=== PATIENT | male | born 1990 | race Two or more races ===

== ENCOUNTER 2024-12-24 08:28 | Emergency (ER) | payer OTHER, SELFPAY ==
[2024-12-24 08:39] VITALS: BP 137/68; PULSE 118; RESP 18; TEMP 37.9; O2SAT 98
--- OUTSIDE RECORDS SUMMARY | 2024-12-24 08:39 | XMS_ITS | Referral Summary ---
Author Organization [facility] Address [address] [place] [address] Phone Care Team Providers Care Wood Boatbuilder Name Role Phone Etelvina Hernandez Daniel Patrick MD Primary Care Provider [phone] Encounters Date Type Department Care Team Description 12/14/2024 Telephone [facility] [address] [place] [address] Juan Christian MD Labs Only 09/27/2024 8:45 AM WASHER REPAIRMAN Lab [facility] [address] [place] [address] Hypogonadism in male from Last 3 Months Allergies No known active allergies Medications No known medications Active Problems Problem Noted Date Diagnosed Date Hypogonadism in male 09/16/2024 Assessment & Plan (09/16/2024 9:52 AM WASHER REPAIRMAN): Patient has been using testosterone; most recent levels were elevated; reports energy levels are improved Will discontinue testosterone; recheck in approximately 3-4 weeks with confirmation testing afterwards Determine appropriate dose of testosterone Class 1 obesity due to exces s calories without serious comorbidity with body mass index (BMI) of 33.0 to 33.9 in adult 09/11/2022 Assessment & Plan (09/16/2024 9:52 AM WASHER REPAIRMAN): Stable, improving; patient has been losing weight, few dietary changes but more physically active, exercising most days of the week Encouraged continue physical activity Assessment & Plan (09/11/2023 3:29 PM WASHER REPAIRMAN): Generally healthy diet of chicken rice or beef and potatoes; goes to gym daily for 40 minutes during lunch, mostly resistance with minimal aerobic activity Encouraged increased aerobic activity for 30 minutes moderate intensity exercise 5 days per week Assessment & Plan (09/11/2022 4:16 PM WASHER REPAIRMAN): Patient reports working on weight loss, calorie restriction and regular exercise has had limited success Will check thyroid levels as possible cause Discussed further behavioral changes, including decreasing weightlifting and focusing on aerobic exercises, as well as targeting approximately 500 calorie deficit daily If no improvement, would consider further evaluation for other potential causes of undesired weight maintenance Immunizations Immunization Administration Dates Next Due DTP 11/10/1996, 4,06/21/1992,04/26,03/01/1992 Hep A, Ped Unspecified 11/09/2001 Hep B, Adolescent or Pediatric 10/05/1993,1991,03/28/1992 HiB 05/05/1994,05/24/1992,03/28/1992 Influenza, Quadrivalent, Spl it, Intramuscular 06/16/2018 Influenza, Quadrivalent, Spl it, Preservative Free, Intramuscular 09/11/2023,09/11/2022 Influenza, Trivalent, IM (MDV) 06/02/2020 Influenza, Trivalent, Preser vative Free, Intramuscular 09/16/2024 Influenza, Unspecified 05/26/2023(Deferred: Crissy ent Refused) MMR 11/10/1996,10/05/1993 Moderna SARS-CoV-2 Monovalen t Vaccination (12+ YRS) 01/04/2021,12/07/2020 OPV 11/13/1996, 4,04/26/1992,03/01 Tdap 01/26/2022,12/16/2005 Varicella 11/10/1996 Social History Tobacco Use Types Packs/Day Years Used Date Smoking Tobacco: Never Cigarettes Smokeless Tobacco: Never Tobacco Cessation:Counseling Given: Not Answered Humiliation, Afraid, Rape, and Kick questionnair e Answer Date Recorded Within the last year, have y ou been afraid of your partner or ex-partner? No 05/26/2023 Within the last year, have y ou been humiliated or emotionally abused in other ways by your partner or ex-partner? No Within the last year, have y ou been kicked, hit, slapped, or otherwise physically hurt by your partner or ex-partner? No 05/26/2023 Within the last year, have y ou been raped or forced to have any kind of sexual activity by your partner or ex-partner? No 05/26/2023 Social Connection and Isolation Panel [NHANES] A nswer Date Recorded In a typical week, how many times do you talk on the phone with family, friends, or neighbors? Once a week 05/26/2023 How often do you get together with friends or re latives? Once a week 05/26/2023 How often do you attend holiness or congregational serv ices? Never 05/26/2023 Do you belong to any clubs o r organizations such as holiness groups, unions, fraternal or athletic groups, or school groups? No 05/26/2023 How often do you attend meet ings of the clubs or organizations you belong to? Never 05/26/2023 Are you , , di vorced, , never , or living with a partner? 05/26/2023 AUDIT-C Answer Date Recorded Q1: How often do you have a drink containing alc ohol? Monthly or less 09/16/2024 Q2: How many drinks containi ng alcohol do you have on a typical day when you are drinking? 1 or 2 09/16/2024 Q3: How often do you have si x or more drinks on one occasion? Never 09/16/2024 Overall Financial Resource Strain (CARDIA) Answe r Date Recorded How hard is it for you to pa y for the very basics like food, housing, medical care, and heating? Not hard at all 05/26/2023 PHQ-2 Answer Date Recorded PHQ-2 Total Score (If total score is 3 or more points, staff should administer the PHQ-9) 0 09/16/2024 [facility] - Occupational Stress Questionnaire Answer Date Recorded Do you feel stress - tense, restless, nervous, or anxious, or unable to sleep at night because your mind is troubled all the time - these days? Rather much 05/26/2023 Exercise Vital Sign Answer Date Recorde d On average, how many days pe r week do you engage in moderate to strenuous exercise (like a brisk walk)? 5 days 05/26/2023 On average, how many minutes do you engage in exercise at this level? 30 min 05/26/2023 Hunger Vital Sign Answer Date Recorded Within the past 12 months, y ou worried that your food would run out before you got the money to buy more. Never true 05/26/20 23 Within the past 12 months, t he food you bought just didn't last and you didn't have money to get more. Never true 05/26/2023 PRAPARE - Transportation Answer Date Re corded In the past 12 months, has l ack of transportation kept you from medical appointments or from getting medications? No 05/03 In the past 12 months, has l ack of transportation kept you from meetings, work, or from getting things needed for daily living? No 05/26/2023 Housing Stability Vital Sign Answer Judson e Recorded In the last 12 months, was t here a time when you were not able to pay the mortgage or rent on time? No 05/26/2023 In the last 12 months, how many places have you lived? 1 05/26/2023 In the last 12 months, was t here a time when you did not have a steady place to sleep or slept in a skilled nursing (including now)? No 05/26/2023 Sex and Gender Information Value Date Recorded Sex Assigned at Not on file Legal Sex Male 4:24 PM WASHER REPAIRMAN Gender Identity Male 09/11/2022 9:55 AM WASHER REPAIRMAN Sexual Orientation Straight 09/11/2022 9: 55 AM WASHER REPAIRMAN Last Filed Vital Signs Vital Sign Reading Time Taken Comments Blood Pressure 112/70 09/16/2024 7:51 AM WASHER REPAIRMAN Pulse 80 09/16/2024 7:51 AM WASHER REPAIRMAN Temperature 36.6 C (97.8 F) 09/16/2024 7:51 AM WASHER REPAIRMAN Respiratory Rate 18 09/16/2024 7:51 AM WASHER REPAIRMAN Oxygen Saturation 96% 09/16/2024 7:51 AM WASHER REPAIRMAN Inhaled Oxygen Concentration - - Weight 94.8 kg (209 lb) 09/16/2024 7:51 AM WASHER REPAIRMAN Height 167.6 cm (5' 6 ) 09/16/2024 7:51 AM WASHER REPAIRMAN Body Mass Index 33.73 09/16/2024 7:51 AM WASHER REPAIRMAN Plan of Treatment Not on file Procedures Procedure Name Priority Date/Time Associated Diagnosis Comments EGFR Routine 09/27/2024 8:43 AM WASHER REPAIRMAN Hypogonadism in male TOTAL TESTOSTERONE Routine 09/27/2024 8: 43 AM WASHER REPAIRMAN Hypogonadism in male LUTEINIZING HORMONE (LH) Routine 09/27/2024 8:43 AM WASHER REPAIRMAN Hypogonadism in male FOLLICLE STIMULATING HORMONE Routine 09/27/2024 8:43 AM WASHER REPAIRMAN Hypogonadism in male COMPREHENSIVE METABOLIC PANEL Routine 09/27/2024 8:43 AM WASHER REPAIRMAN Hypogonadism in male from Last 3 Months Results * eGFR (09/27/2024 8:43 AM WASHER REPAIRMAN) eGFR 68 >=60 mL/min/1. 73 m2 Comment: Interpretive Data Reference Interval Normal >/= 90 mL/min/1.73m2 Mildly decreased* 60 - 89 mL/min/1.73m2 Mildly to moderately decreased 45 - 59 mL/min/1.73m2 Moderately to severely decreased 30 - 44 mL/min/1.73m2 Severely decreased 15 - 29 mL/min/1.73m2 Kidney Failure < 15 mL/min/1.73m2 *Relative to young adult level Estimated glomerular filtration rate is determined by the 2020 CKD-EPI equation recommended by the National Kidney Foundation (A Unifying Approach to GFR Estimation: Recommendations of the NKF-ASK Task Force on Reassessing the Inclusion of Race in Diagnosing Kidney Disease, JASN 202). The CKD-EPI equation should not be used for patients with unstable renal function and has not been validated in children and those over 70. Current interpretive data was last reviewed 2021. Testing performed by: [facility], [address] [place] [address], [place]., [address] Blood 09/27/2024 8:43 AM WASHER REPAIRMAN 09/27/2024 11:50 AM WASHER REPAIRMAN Juan Christian MD LAB BLOOD ORDERABLES Valerie l Result [facility] ([place]) [address] [facility] [place] [address] * Total testosterone (09/27/2024 8:43 AM WASHER REPAIRMAN) Testosterone 273 249 - 836 ng/dL Comment:Testing performed by : [facility], [address] [place] [address], [address] Blood 09/27/2024 8:43 AM WASHER REPAIRMAN 09/27/2024 11:44 AM WASHER REPAIRMAN Juan Christian MD LAB BLOOD ORDERABLES Valerie l Result Performing Organization Address [facility]/ZIP Co de Phone Number [facility] ([place]) [address] [place] [address] [place] [address] * (ABNORMAL) LH (09/27/2024 8:43 AM WASHER REPAIRMAN) LH <0.3(L) 1.7 - 8.6 IUnits/L Comment: Interpretive Data Males: Adults: 1.7 - 8.6 IUnits/L Females: Follicular: 2.4 - 12.6 IUnits/L Ovulation: 14.0 - 95.6 IUnits/L Luteal: 1.0 - 11.4 IUnits/L Postmenopausal: 7.7 - 58.5 IUnits/L Current interpretive data was last revised on 2019. Testing performed by: [facility], [address] [place] [address], [place]., [address] Blood 09/27/2024 8:43 AM WASHER REPAIRMAN 09/27/2024 4:57 PM WASHER REPAIRMAN Juan Christian MD LAB BLOOD ORDERABLES Valerie l Result [facility] ([place]) [address] Department [place] [address] * (ABNORMAL) Follicle stimulating hormone (09/27/2024 8:43 AM WASHER REPAIRMAN) FSH <0.3(L) 1.5 - 12.4 IUnits/L Comment: Interpretive Data Male: Adults: 1.5 - 12.4 IUnits/L Female: Follicular: 3.5 - 12.5 IUnits/L Ovulation: 4.7 - 21.5 IUnits/L Luteal: 1.7 - 7.7 IUnits/L Postmenopausal: 25.8 - 134.8 IUnits/L Current interpretive data was last revised 2015. Testing performed by: [facility], [address] [place] [address], [address] Blood 09/27/2024 8:43 AM WASHER REPAIRMAN 09/27/2024 4:57 PM WASHER REPAIRMAN Juan Christian MD LAB BLOOD ORDERABLES Valerie l Result [facility] ([place]) 1 [facility] Department [place] [address] * (ABNORMAL) Comprehensive metabolic panel (09/27/2024 8:43 AM WASHER REPAIRMAN) Pathologist [facility] Sodium 141 135 - 145 mmol/L Comment:Testing performed by : [facility], [address] [place] [address]., [address] Potassium, pl 4.0 3.3 - 4.9 mmol/L [facility] ([place]) Comment:Testing performed by : [facility], [address] [place] [address]., [address] Chloride 103 97 - 110 mmol/L [facility] ([place]) Comment:Testing performed by : [address], [address] CO2 28 22 - 32 mmol/L [facility] ([place]) Comment:Testing performed by : [address], [address] Anion gap 10 2 - 15 mmol/L [facility] ([place]) Comment:Testing performed by : [address] [address] BUN 14 6 - 25 mg/dL [facility] ([place]) Comment:Testing performed by : [address] [address] Creatinine 1.41(H) 0.80 - 1.30 mg/dL [facility] ([place]) Comment:Testing performed by : [address] [address] Glucose 93 70 - 199 mg/dL [facility] ([place]) Comment: Interpretive Data Fasting glucose >/= 126 mg/dl is diagnostic for diabetes. Fasting is defined as no caloric intake for at least 8 hours. Fasting glucose between 100 mg/dl to 125 mg/dl is diagnostic of prediabetes. In a patient with classic symptoms of hyperglycemia or hyperglycemic crisis, a random glucose >/= 200 mg/dl is diagnostic for diabetes. In the absence of unequivocal hyperglycemia, results should be confirmed by repeat testing. The classification and Diagnosis of Diabetes Diabetes Care 2021; 46: S19-S40. Current interpretive data was last revised 2022. Testing performed by: [address] [address] Calcium 9.8 8.5 - 10.3 mg/dL [facility] ([place]) Comment:Testing performed by : [address] [address] Bilirubin, total 0.6 0.1 - 1.2 mg/dL [facility] ([place]) Comment:Testing performed by : [address] [address] Protein, pl 7.7 6.5 - 8.5 g/dL [facility] ([place]) Comment:Testing performed by : [address] [address] Albumin 4.7 3.5 - 5.0 g/dL [facility] ([place]) Comment:Testing performed by : [address], [address] Alk phos 69 40 - 130 Units/L [facility] ([place]) Comment:Testing performed by : [address], [address] ALT 42 7 - 55 Units/L [facility] ([place]) Comment:Testing performed by : [facility], [id number] [place] [address]., [address] AST 42 10 - 50 Units/L [facility] ([place]) Comment:Testing performed by : [facility], [address] [place] [address]., [address] Blood 09/27/2024 8:43 AM WASHER REPAIRMAN 09/27/2024 11:44 AM WASHER REPAIRMAN us Juan Christian MD LAB BLOOD ORDERABLES Valerie walker Result [facility] ([place]) 1 [facility] Department [place] [address] from Last 3 Months [facility] [employer]LE[employer] Care Teams Wood Boatbuilder Relationship Specialty Start Date End Date Juan Christian MD [address] [place] [address] PCP - General Family Medicine 09/11/22 Etelvina Hernandez 04/18/22
--- OUTSIDE RECORDS SUMMARY | 2024-12-24 08:39 | XMS_ITS | Clinical Summary ---
Author Organization [facility] [employer] [place] Address [address] [place] [address] Care Team Providers Care Ophthalmic Asst Name Role Phone Juan Christian MD Primary Care Provider [phone] Allergies No known active allergies Medications amoxicillin (AMOXIL) 875 mg tabletIndication s:Acute right otitis media Take 1 Tablet (875 mg) by mouth every 12 hours. 20 Tablet 09/13/2022 Active Active Problems No known active problems Encounters Date Type Department Care Team Description 11/30/2024 External Device Data [facility] ABSTRACTION Provider, Abstract 10/26/2024 External Device Data [facility] Provider, Abstract 10/20/2024 External Device Data [facility] Provider, Abstract from Last 3 Months Immunizations Immunization Administration Dates Next Due INFLUENZA VACCINE QUADRIVALENT 6 MOS UP IM 06/16 INFLUENZA VACCINE QUADRIVALENT 6 MOS UP PF IM Influenza Seasonal Unspecified Formulation IM Family History Medical History Relation Name Comments Lung Cancer Father Randy Daniel Has passed - Diagnosed in late 50s Relation Name Status Comments Father Randy Daniel Social History Tobacco Use Types Packs/Day Years Used Date Smoking Tobacco: Never Smokeless Tobacco: Never Comments:Never touched tobac co Alcohol Use Standard Drinks/Week Comments Yes 0 (1 standard drink = 0.6 oz pur e alcohol) Maybe a drink or two a week Sex and Gender Information Value Date Recorded Sex Assigned at Not on file Legal Sex Male 10:18 AM CDT Gender Identity Not on file Sexual Orientation Not on file Last Filed Vital Signs Vital Sign Reading Time Taken Comments Blood Pressure 118/70 02/20/2024 8:58 AM CDT Pulse 91 09/13/2022 7:58 AM SOLID WASTE TECHNICIAN Temperature 36 C (96.8 F) 09/13/2022 7:58 AM SOLID WASTE TECHNICIAN Respiratory Rate 18 09/13/2022 7:58 AM SOLID WASTE TECHNICIAN Oxygen Saturation 99% 09/13/2022 7:58 AM SOLID WASTE TECHNICIAN Inhaled Oxygen Concentration - - Weight 96.6 kg (213 lb) 02/20/2024 8:58 AM CDT Height 170.2 cm (5' 7 ) 02/20/2024 8:58 AM CDT Body Mass Index 33.36 02/20/2024 8:58 AM CDT Plan of Treatment Health Maintenance Due Date Last Done Comments INFLUENZA VACCINE (#1) 2024 , 09/11/2022, 06/02/2020, Additional history exists COVID-19 Vaccine ( season) 2024 01/04/2021, 12/07/2020 DTAP/TDAP/TD VACCINES (8 - Td or Tdap) 01/27/2032 01/26/2022, 12/16/2005, 11/10/1996, Additional history exists HEPATITIS B VACCINES Completed 10/05/1993, 04/26/1992, 03/28/1992 HPV VACCINES Aged Out No longer eligi ble based on patient's age to complete this topic Insurance [employer] OPEN ACCESS * Guarantor: [employer] Account Type Relation to Patient Date of Phone Billing Address Corporate Employer ATTN: LETY KAMARA [address] [address] Care Teams Ophthalmic Asst Relationship Specialty Start Date End Date Juan Christian MD [address] [place] [address] PCP - General Family Practice 09/13/22
--- OUTSIDE RECORDS SUMMARY | 2024-12-24 08:39 | XMS_ITS | Clinical Summary ---
Author Organization [facility] Address [address] [place] [address] Care Team Providers Care Nutrition Teacher Name Role Phone Unavailable Primary Care Provider Unavailabl e Source Comments [facility],non-owned Affiliates and Associated Physician Practices is amultiple site organization consisting of ambulatory clinics and hospital sitesin [place], [place], [place] and [place]. This disclosure is being madepursuant to the Care Everywhere program and may not contain all information available regarding this patient. Last updated 18.[facility] Allergies No known active allergies Medications * Be aware that medications may not be up to date on this document. Alwaysverify current medications with the patient. No known medications Social History Tobacco Use Types Packs/Day Years Used Date Smoking Tobacco: Never Assessed Sex and Gender Information Value Date Recorded Sex Assigned at Not on file Legal Sex Male 1:27 PM CDT Gender Identity Not on file Sexual Orientation Not on file Last Filed Vital Signs Vital Sign Reading Time Taken Comments Blood Pressure 120/72 12/17/2016 2:16 PM CDT Pulse 85 12/17/2016 2:16 PM CDT Temperature 36.9 C (98.5 F) 12/17/2016 2:16 PM CDT Respiratory Rate - - Oxygen Saturation - - Inhaled Oxygen Concentration - - Weight 86.2 kg (190 lb) 12/17/2016 2:16 PM CDT Height 170.2 cm (5' 7 ) 12/17/2016 2:16 PM CDT Body Mass Index 29.76 12/17/2016 2:16 PM CDT Plan of Treatment Health Maintenance Due Date Last Done Comments HIV SCREENING 12/29/2006 HEPATITIS C SCREENING 12/25/2009 DTAP/TDAP/TD VACCINES (1 - Tdap) 12/29/2010 HEPATITIS B VACCINE (1 of 3 - 19+ 3-dose series) 12/29/2010 COVID-19 VACCINE (2023-2 5 season) 2024 DEPRESSION SCREENING 09/01/2024 INFLUENZA VACCINE (Season Ended) 2025 ZOSTER VACCINE (1 of 2) 12/29/2041 HIB VACCINE Aged Out No longer eligi ble based on patient's age to complete this topic HPV VACCINE Aged Out No longer eligi ble based on patient's age to complete this topic MENINGOCOCCAL (Group B) VACC INE SHARED DECISION-MAKING Aged Out No longer eligibl e based on patient's age to complete this topic MENINGOCOCCAL GROUPS A/C/Y/W VACCINE Aged Out No longer eligible b ased on patient's age to complete this topic PNEUMOCOCCAL VACCINE Aged Out No long er eligible based on patient's age to complete this topic Insurance
--- OUTSIDE RECORDS SUMMARY | 2024-12-24 08:39 | XMS_ITS | Clinical Summary ---
Author Organization [facility] Address [address] [address] Phone Care Team Providers Care Fretted Instrument Inspector Name Role Phone Etelvina Hernandez Daniel Patrick MD Primary Care Provider [phone] Allergies No known active allergies Medications No known medications Active Problems Problem Noted Date Diagnosed Date Hypogonadism in male 09/16/2024 Assessment & Plan (09/16/2024 9:52 AM MOBILE UI DESIGNER): Patient has been using testosterone; most recent levels were elevated; reports energy levels are improved Will discontinue testosterone; recheck in approximately 3-4 weeks with confirmation testing afterwards Determine appropriate dose of testosterone Class 1 obesity due to exces s calories without serious comorbidity with body mass index (BMI) of 33.0 to 33.9 in adult 09/11/2022 Assessment & Plan (09/16/2024 9:52 AM MOBILE UI DESIGNER): Stable, improving; patient has been losing weight, few dietary changes but more physically active, exercising most days of the week Encouraged continue physical activity Assessment & Plan (09/11/2023 3:29 PM MOBILE UI DESIGNER): Generally healthy diet of chicken rice or beef and potatoes; goes to gym daily for 40 minutes during lunch, mostly resistance with minimal aerobic activity Encouraged increased aerobic activity for 30 minutes moderate intensity exercise 5 days per week Assessment & Plan (09/11/2022 4:16 PM MOBILE UI DESIGNER): Patient reports working on weight loss, calorie restriction and regular exercise has had limited success Will check thyroid levels as possible cause Discussed further behavioral changes, including decreasing weightlifting and focusing on aerobic exercises, as well as targeting approximately 500 calorie deficit daily If no improvement, would consider further evaluation for other potential causes of undesired weight maintenance Encounters Date Type Department Care Team Description 12/14/2024 Telephone [facility] [address] [place] [address] Juan Christian MD Labs Only 09/27/2024 8:45 AM MOBILE UI DESIGNER Lab [facility] [address] [place] [address] Hypogonadism in male from Last 3 Months Immunizations Immunization Administration Dates Next Due DTP [...] OPV 11/13/1996, 4,04/26/1992,03/01 Tdap 01/26/2022,12/16/2005 Varicella 11/10/1996 Family History Medical History Relation Name Comments Asthma Father Randy Carver Asthma; Cancer Father Randy Carver Lung cancer Father Randy Carver Cancer -lung ; Hypertension Mother Vee Carver Hypertension ; Other Mother Vee Carver Alive and we ll; Relation Name Status Comments Father Randy Carver Mother Vee Carver Alive Social History Tobacco Use Types Packs/Day Years [...] week 05/26/2023 How often do you attend nondenominational or spiritism serv ices? Never 05/26/2023 Do you belong to any clubs o r organizations such as nondenominational groups, unions, fraternal or athletic groups, or [...] staff should administer the PHQ-9) 0 09/16/2024 [facility] - Occupational Stress Questionnaire Answer Date Recorded [...] place to sleep or slept in a assisted (including now)? No 05/26/2023 Sex and Gender Information Value Date Recorded Sex Assigned at Not on file Legal Sex Male 4:24 PM MOBILE UI DESIGNER Gender Identity Male 09/11/2022 9:55 AM MOBILE UI DESIGNER Sexual Orientation Straight 09/11/2022 9: 55 AM MOBILE UI DESIGNER Obstetrics History Last Filed Vital Signs Vital Sign Reading Time Taken Comments Blood Pressure 112/70 09/16/2024 7:51 AM MOBILE UI DESIGNER Pulse 80 09/16/2024 7:51 AM MOBILE UI DESIGNER Temperature 36.6 C (97.8 F) 09/16/2024 7:51 AM MOBILE UI DESIGNER Respiratory Rate 18 09/16/2024 7:51 AM MOBILE UI DESIGNER Oxygen Saturation 96% 09/16/2024 7:51 AM MOBILE UI DESIGNER Inhaled Oxygen Concentration - - Weight 94.8 kg (209 lb) 09/16/2024 7:51 AM MOBILE UI DESIGNER Height 167.6 cm (5' 6 ) 09/16/2024 7:51 AM MOBILE UI DESIGNER Body Mass Index 33.73 09/16/2024 7:51 AM MOBILE UI DESIGNER Plan of Treatment Health Maintenance Due Date Last Done Comments Hepatitis C Screening 1991 Varicella Vaccines (2 of 2 - 2-dose childhood series) 02/02/1997 11/10/1996 Covid-19 Vaccine ( season) 2024 01/04/2021, 12/07/2020 Depression Screening 09/16/2025 09/16/2024, 09/11/2023, 05/26/2023, Additional history exists Regular Well Visit/Exam 18-64 09/16/2025 09/16/2024, 09/11/2023 DTaP/Tdap/Td Vaccine (8 - Td or Tdap) 01/27/2032 01/26/2022, 12/16/2005, 11/10/1996, Additional history exists Hepatitis B Screening Completed 08/03/2024 , 10/05/1993, 04/26/1992, Additional history exists Influenza Vaccine Completed 09/16/2024, , 09/11/2022, Additional history exists HPV Vaccines Aged Out No longer eligi ble based on patient's age to complete this topic Pneumococcal vaccine <65 Aged Out No longer eligible based on patient's age to complete this topic Procedures Procedure Name Priority Date/Time Associated Diagnosis Comments EGFR Routine 09/27/2024 8:43 AM MOBILE UI DESIGNER Hypogonadism in male TOTAL TESTOSTERONE Routine 09/27/2024 8: 43 AM MOBILE UI DESIGNER Hypogonadism in male LUTEINIZING HORMONE (LH) Routine 09/27/2024 8:43 AM MOBILE UI DESIGNER Hypogonadism in male FOLLICLE STIMULATING HORMONE Routine 09/27/2024 8:43 AM MOBILE UI DESIGNER Hypogonadism in male COMPREHENSIVE METABOLIC PANEL Routine 09/27/2024 8:43 AM MOBILE UI DESIGNER Hypogonadism in male from Last 3 Months Results * eGFR (09/27/2024 8:43 AM MOBILE UI DESIGNER) eGFR 68 >=60 mL/min/1. 73 m2 Comment: [...] of Race in Diagnosing Kidney Disease, JASN 2020). The CKD-EPI equation should not be used for patients with unstable renal function and has not been validated in children and those over 70. Current interpretive data was last reviewed 2021. Testing performed by: [address] [place] [address] Blood 09/27/2024 8:43 AM MOBILE UI DESIGNER 09/27/2024 11:50 AM MOBILE UI DESIGNER us Juan Christian MD LAB BLOOD ORDERABLES Valerie l Result [facility] Department [place] [address] * Total testosterone (09/27/2024 8:43 AM MOBILE UI DESIGNER) Testosterone 273 249 - 836 ng/dL Comment:Testing performed by : [facility], [address] [place] [address], [place]., [address] Blood 09/27/2024 8:43 AM MOBILE UI DESIGNER 09/27/2024 11:44 AM MOBILE UI DESIGNER Juan Christian MD LAB BLOOD ORDERABLES Valerie l Result [facility] ([facility]) [address] [place] [address] [place] [address] * (ABNORMAL) LH (09/27/2024 8:43 AM MOBILE UI DESIGNER) LH <0.3(L) 1.7 - 8.6 IUnits/L Comment: Interpretive Data Males: Adults: 1.7 - 8.6 IUnits/L Females: Follicular: 2.4 - 12.6 IUnits/L Ovulation: 14.0 - 95.6 IUnits/L Luteal: 1.0 - 11.4 IUnits/L Postmenopausal: 7.7 - 58.5 IUnits/L Current interpretive data was last revised on 2019. Testing performed by: [facility], [address] [place] [address]., [address] Blood 09/27/2024 8:43 AM MOBILE UI DESIGNER 09/27/2024 4:57 PM MOBILE UI DESIGNER Juan Christian MD LAB BLOOD ORDERABLES Valerie l Result Performing Organization Address City/[facility] Co de Phone Number [facility] [address] [place] [address] [place] [address] * (ABNORMAL) Follicle stimulating hormone (09/27/2024 8:43 AM MOBILE UI DESIGNER) FSH <0.3(L) 1.5 - 12.4 IUnits/L Comment: Interpretive Data Male: Adults: 1.5 - 12.4 IUnits/L Female: Follicular: 3.5 - 12.5 IUnits/L Ovulation: 4.7 - 21.5 IUnits/L Luteal: 1.7 - 7.7 IUnits/L Postmenopausal: 25.8 - 134.8 IUnits/L Current interpretive data was last revised 2015. Testing performed by: [facility], [address] [place]., [address] Blood 09/27/2024 8:43 AM MOBILE UI DESIGNER 09/27/2024 4:57 PM MOBILE UI DESIGNER us Juan Christian MD LAB BLOOD ORDERABLES Valerie walker Result [facility] ([facility]) [facility] Department [place] [address] * (ABNORMAL) Comprehensive metabolic panel (09/27/2024 8:43 AM MOBILE UI DESIGNER) Sodium 141 135 - 145 mmol/L Comment:Testing performed by : [address] [address] Potassium, pl 4.0 3.3 - 4.9 mmol/L [facility] ([facility]) Comment:Testing performed by : [address], [address] Chloride 103 97 - 110 mmol/L [facility] ([place]) Comment:Testing performed by : [address], [address] CO2 28 22 - 32 mmol/L [facility] ([place]) Comment:Testing performed by : [address], [address] Anion gap 10 2 - 15 mmol/L [facility] ([place]) Comment:Testing performed by : [address], [address] BUN 14 6 - 25 mg/dL [facility] ([place]) Comment:Testing performed by : [address], [address] Creatinine 1.41(H) 0.80 - 1.30 mg/dL [facility] ([place]) Comment:Testing performed by : [address], [address] Glucose 93 70 - 199 mg/dL [facility] ([place]) Comment: Interpretive Data Fasting glucose [...] classification and Diagnosis of Diabetes Diabetes Care 202; 46: S19-S40. Current interpretive data was last revised 2022. Testing performed by: [facility], [address] [place] [address]., [address] Calcium 9.8 8.5 - 10.3 mg/dL [facility] ([place]) Comment:Testing performed by : [address], [address] Bilirubin, total 0.6 0.1 - 1.2 mg/dL [facility] ([place]) Comment:Testing performed by : [address], [address] Protein, pl 7.7 6.5 - 8.5 g/dL [facility] ([place]) Comment:Testing performed by : [address], [address] Albumin 4.7 3.5 - 5.0 g/dL [facility] ([place]) Comment:Testing performed by : [address], [address] Alk phos 69 40 - 130 Units/L [facility] ([place]) Comment:Testing performed by : [address], [address] ALT 42 7 - 55 Units/L [facility] ([place]) Comment:Testing performed by : [address], [address] AST 42 10 - 50 Units/L [facility] ([place]) Comment:Testing performed by : [address], [address] Blood 09/27/2024 8:43 AM MOBILE UI DESIGNER 09/27/2024 11:44 AM MOBILE UI DESIGNER us Juan Christian MD LAB BLOOD ORDERABLES Valerie walker Result [facility] ([facility] Department [place] [address] from Last 3 Months Insurance [employer] Care Teams Fretted Instrument Inspector Relationship Specialty Start Date End Date Juan Christian [place] [address] PCP - General Family Medicine 09/11/22 Etelvina Hernandez 04/18/22
--- NOTE | 2024-12-24 08:44 | ED.URI ---
HPI - URI/Sore Throat General Chief Complaint: Upper Respiratory Infection Stated Complaint: sore thoat/gold/body/ear pain Time Seen by Provider: 12/24/24 08:30 Source: patient Mode of arrival: ambulatory Limitations: no limitations History of Present Illness HPI Narrative: Leeroy is a 33-year-old male patient presenting to clinic today with complaints of fevers, chills, sore throat, headache, body aches, fatigue, and ear pain x3 days. He reports no chest pain or shortness of breath. Related Data Home Medications ?Medication ?Instructions ?Recorded ?Confirmed ?Last Taken ?Type No Home Medications 12/24/24 12/24/24 Unknown History Allergies Allergy/AdvReac Type Severity Reaction Status Date / Time No Known Allergies Allergy Unverified 12/24/24 08:53 Review of Systems Review of Systems: Pertinent positives per HPI. Patient denies any rash, visual changes, dizziness, shortness of breath, chest pain, palpitations, nausea, vomiting, diarrhea, constipation, abdominal pain, or any urinary issues. PMFSH Comments At the time of my signature, I reviewed and agree with the nursing past medical, surgical, social, and family history. There is no relevant family history pertinent to the patient complaint. Exam Narrative: General: Well-developed, well nourished, in no apparent distress Head: Normocephalic, atraumatic Eyes: Pupils equally round and reactive to light bilaterally, EOM intact, sclera and conjunctive clear, no discharge, lids normal Ears: TMs intact and congested, ear canals clear, no drainage, grossly hearing normal. Nose: Nares patent, clear nasal discharge, no inflammation, no sinus tenderness. Mouth: Oral pharynx mildly red without lesions or masses, good dentition, MMM. Neck: Supple, trachea midline, no enlargement of anterior or posterior cervical nodes, no thyroid masses or goiter palpable. Cardio: Regular rate and rhythm, s1 and s2 normal, no murmur appreciated. Resp: Clear to auscultation bilaterally, no rhonchi, rales, wheezing or rubs Course Course Emergency Course: Portions of this record may have been created with voice recognition software. Level of Care: Express Care Visit Vital Signs Vital signs: Vital Signs Temperature 37.9 C H 12/24/24 08:39 Pulse Rate 118 H 12/24/24 08:39 Respiratory Rate 18 12/24/24 08:39 Blood Pressure 137/68 12/24/24 08:39 Pulse Oximetry 98 12/24/24 08:39 Oxygen Delivery Room Air 12/24/24 08:39 Temperature 37.9 C H 12/24/24 08:39 Pulse Rate 118 H 12/24/24 08:39 Respiratory Rate 18 12/24/24 08:39 Blood Pressure 137/68 12/24/24 08:39 Pulse Oximetry 98 12/24/24 08:39 Oxygen Delivery Room Air 12/24/24 08:39 Vital signs reviewed MDM - URI/Sore Throat MDM Narrative Medical decision making narrative: At the time of visit patient is resting comfortably on the exam table. Patient appears to be nontoxic. Labs: COVID, influenza, and strep test were all negative in the clinic today. We will send strep for culture. Plan: I suspect patient has URI/pharyngitis/viral syndrome. Supportive measures were discussed with the patient and they voiced understanding discharge instructions and agrees to treatment plan. Return precautions reviewed Differential Diagnosis Differential diagnosis: Likely upper respiratory infection, otitis media, sinusitis, viral infection, bronchitis, influenza, pharyngitis and other (COVID) Discharge Plan Discharge Clinical Impression: Viral infection Upper respiratory infection Qualifiers: URI type: unspecified URI Qualified Code(s): J06.9 - Acute upper respiratory infection, unspecified Pharyngitis Qualifiers: Pharyngitis/tonsillitis etiology: unspecified etiology Qualified Code(s): J02.9 - Acute pharyngitis, unspecified Patient Disposition: Home Condition: Stable Instructions: Antibiotic Form, Pharyngitis (ED), Viral Syndrome (ED), Cold Symptoms (ED) Additional Instructions: COVID, influenza, and strep test were all negative in the clinic today. We will send strep for culture. May take DayQuil/NyQuil for cold/flu symptoms Increase fluids and stay well hydrated Tylenol/motrin for pain/fever Flonase and OTC antihistamines as directed Vicks vapor rub to open sinuses Sinus rinses for congestion Cepacol spray, cough drops, throat lozenges, warm tea with honey/lemon, gargle salt water to soothe throat BRAT diet for diarrhea Clear liquids x 24 hours then advance as tolerated for nausea/vomiting Go to the ED if you develop a worsening in your condition- high fever not controlled by Tylenol or Motrin, dehydration, weakness, lethargy, shortness of breath, or chest pain. Follow up with your PCP in 3-5 days if symptoms persist. Patient Language: Cook Islander Prescriptions: No Action No Home Medications Follow-up/Referrals: Anahi,MD Juan [Primary Care Provider] - Stand Alone Forms: Work/School Release IP Time of Disposition: 09:03 Quality NIHSS Nursing Documentation ED NIHSS nursing documentation: reviewed/agree
[2024-12-24 09:03] LABS: EDCOVIDSCREEN Negative (Negative); EDINFLUASCREEN Negative (Negative); EDINFLUBSCREEN Negative (Negative); EDSTREPNEGPOS1 Negative (Negative)
== END 2024-12-24 09:08 | disposition home or self-care (01) ==
PROVIDERS: Emergency Provider Nurse Practitioner Family; PCP Hospitalist
DX: J06.9 Acute upper respiratory infection, unspecified (principal); B97.89 Other viral agents as the cause of diseases classified elsewhere; Z20.822 Contact with and (suspected) exposure to COVID-19
CPT/HCPCS: 87081; 87426; 87804; 87880; 99203; G0463